=== PATIENT | male | born 1950 | race Caucasian/White ===

== ENCOUNTER 2017-12-07 11:49 | Inpatient (IN) | payer SELFPAY ==
[2017-12-07] MEDS ORDERED: Sodium Chloride FLUSH* 10 ML SYRINGE ONE (12:00)
[2017-12-07] MEDS ORDERED: EPINEPHRINE 1 MG/ML 1 ML VIAL ONE (12:00)
[2017-12-07 12:38] LABS: Hemoglobin 5.4 g/dl (14.0-18.0)
--- NOTE | 2017-12-07 12:49 | RAD ---
INDICATION: Cardiac arrest. COMPARISON: There are no prior studies available for comparison. TECHNIQUE: A portable view of the chest was obtained. FINDINGS: Cardiac and mediastinal contours appear to be within normal limits. The patient is status post intubation and nasogastric tube placement. The endotracheal tube tip projects to the right of the midline which is likely related to patient positioning and scoliosis. There is a nasogastric tube which enters normal course. The catheter tip projects below the left hemidiaphragm off the film. The lungs are underinflated and grossly clear. No pleural effusion or pneumothorax is seen. There is a slightly displaced fracture of the left lateral seventh rib. IMPRESSION: 1. STATUS POST INTUBATION AND NASOGASTRIC TUBE PLACEMENT. 2. LUNGS GROSSLY CLEAR. 3. SLIGHTLY DISPLACED FRACTURE OF THE LEFT LATERAL SEVENTH RIB.
[2017-12-07] MEDS ORDERED: NS 0.9% 1000 ML* 3,000 ML IV ONE (12:50)
[2017-12-07] MEDS ORDERED: Chlorhexidine MOUTHWASH 0.12%* 15 ML UDC TOPICAL SCH (13:00)
[2017-12-07 13:25] LABS: Monocytes % 8 % (0-7)
--- NOTE | 2017-12-07 13:29 | RAD ---
Indication: Cardiac arrest, unresponsive. CT of the brain was performed without IV contrast. Ventricular structures are midline. No midline shift is noted. Central and cortical atrophy is noted. Linear high density is noted in the left frontal lobe extending into the interhemispheric fissure. There is suggestion of a subarachnoid hemorrhage as well. No intraventricular hemorrhage is noted currently. No midline shift is noted. IMPRESSION: No midline shift is noted although high density material is noted in the left frontal tip extending into the interhemispheric fissure likely representing subarachnoid hemorrhage with possible cortical hemorrhage.
[2017-12-07 13:30] LABS: Urine Appearance Cloudy; Urine Blood 1+ (Negative); Urine Color Amber; Urine Ketones Negative (Negative); Urine Protein 2+(100 mg/dL) (Negative); Urine Specific Gravity 1.019 (1.010-1.030); Urine Urobilinogen Negative (Negative)
[2017-12-07] MEDS ORDERED: NS 0.9% 500 ML* 492 ML with Norepinephrine VIAL* 8 MG IV SCH ×2 (14:00)
[2017-12-07] MEDS ORDERED: D5W IVPB SCH (14:00)
[2017-12-07] MEDS ORDERED: Pantoprazole IV* 40 MG IV SCH (14:00)
[2017-12-07] MEDS ORDERED: NS 0.9% IVPB SCH (14:00)
[2017-12-07] MEDS ORDERED: EPINEPHRINE AMP IVPB SCH ×2 (14:00)
[2017-12-07 14:08] VITALS: BP 112/69
[2017-12-07 14:09] LABS: Hematocrit 18 % (42-52); Mean Corpuscular HGB Conc 29 g/dl (31-36); Mean Corpuscular Hemoglobin 29 pg (27-31); Mean Corpuscular Volume 98 fL (80-94); Mean Platelet Volume 10 um3 (7.4-10.4); Platelet Count 29 10^3/ul (150-450); Red Blood Count 1.87 10^6/ul (4.0-5.4); Red Cell Distribution Width 20 % (10.5-15); White Blood Count 5.5 10^3/ul (3.5-10.8)
--- NOTE | 2017-12-07 15:35 | HP ---
H&P (Free Text) History and Physical: CRITICAL CARE MEDICINE DATE: 12/07/17 TIME: 1145 PRIMARY CARE PROVIDER: none REFERRING PROVIDER: Dejuan REASON/CHIEF COMPLAINT: ohca HISTORY OF PRESENT ILLNESS: 67 M with limited history due to acuity; EMS summoned to being found down in his apartment by neighbor friend unresponsive. Initial rhytm per ems was pea to asystole. Given epi in field with autopulse. Failed ett and combitube placed. Downtime of 65min by ED arrival. PEA on arrival. Another 20min of tx and rosc. According to friend Chandu ?(?probably closest friend who called 911 today) pt with a estranged teenage daughter in [place]. May have a sister in [place]. But no family involvement. Pt would never have wanted to be kept alive on life support. He didn't go to doctors. REVIEW OF SYSTEMS: As per HPI, limited secondary to acuity. PAST MEDICAL HISTORY: As per HPI, limited secondary to acuity. bone fx, renal stones per records. MEDICATIONS: Unknown. ALLERGIES: Unknown. SOCIAL HISTORY: Reviewed. lived alone. [place] by trade. FAMILY HISTORY: none known. PHYSICAL EXAM: Post rosc in ED Vital Signs: Reviewed. Hr 60-90s. given atropine then with response. Neurologic: pupils were already fixed and dilated, dysconjugate. pale conjunctiva. No corneals. No ga, no cough. No response to pain. HEENT: ett with cuff leak, requiring advancement of ett to 27cm Cardiovascular: distant, but irr reg tone without appreciable m Respiratory: coarse bl but eq bs Abdomen: distended, tympanitic; no bs. old rlq scar (?appy) Extremities: cool. petchial appearing rash to b/l le. Access: piv; left tib io LABS: Reviewed. question validity of labs intracode IMAGING: Reviewed. CT with sah MEDICATIONS: Reviewed. ASSESSMENT: 67 male with multisystem organ failure post Out of hospital cardiac arrest. Cardiogenic shock. Coma on admission. Subarachnoid hemorrhage. Acute hypoxic respiratory failure. Lactic acidosis. Acute renal failure. Anemia. PLAN: At bedside post rosc. levophed, epinephrine required. bicarb given. bp maintaining into 90s systolic but not above despite efforts. coma with signs of anoxia. obtained CT with sah. could this have been the initial event with syncope and then prolonged downtime? vs post resuscitation efforts as doesn't seem large enough for coma, although SAH can be tricky that way. Vent with pcv 25/8, 100%. Labs were pending and hb returned in 5 gram range. question labs and held on given blood at this time given his condition, downtime and trying to find family. On arrival to ICU post ct, he had pulseless bradycardia ensue again and given further cpr, epi, bicarb with rosc. Already with signs of coma, msof, anoxia injury and refractory cardiogenic shock. Had received about 5 liters fluid at this point and volume collier was tolerating, but unable to maintain. plan for blood which would take a little time and of little overall benefit but could try. Then got a hold of pts friend Chandu, who had called 911 and is pt closest friend perhaps. We discussed as above. He explained several times lack of family involvement and that pt would not want such measures. When I explained we were already beyond most max therapies and was anticipating yet another cardiac arrest and we agree that pt would prefer to be let go if that ensued. Again, reminded him we were maxed and unable to support this failing process. Held off on blood products. Pt with ensuing bradycardia and arrest despite very high dose vasopressors and support. Demise was eminent and time of at 2:03pm. Disposition: . Code Status: Full Critical Care Time: 135min Salima Cruz DO
--- NOTE | 2017-12-07 16:47 | DS ---
CRITICAL CARE MEDICINE DISCHARGE SUMMARY ADMISSION DATE: 12/07/2017 DISCHARGE DATE: 12/07/2017 PRIMARY CARE PROVIDER: None. REFERRING PHYSICIAN: Dejuan. DIAGNOSIS: 1. Multisystem organ failure. 2. Out of hospital cardiac arrest. 3. Cardiogenic shock. 4. Coma on admission. 5. Subarachnoid hemorrhage. 6. Acute hypoxic respiratory failure. 7. Lactic acidosis. 8. Acute renal failure. 9. Anemia. 10. Thrombocytopenia. HOSPITAL COURSE: 67 year old male, with limited history due to acuity; EMS summoned to being found down in his apartment by neighbor friend and unresponsive. Initial rhythm per was pulseless electric activity. Advanced cardiac life suppport measures instilled. Over 90 minutes of code time until return of circulation. Requiring high dose vasopressors to maintain. Hemoglobin low at 5.4, perhaps explaining his onset with other signs of chronic marrow suppression. Cat scan brain with subarachnoid hemorrhage. Patient comatose, fixed and dilated pupils. On arrival to ICU another circulatory arrest and resuscitation. Closest friend expressed patient would not desire these efforts and despite maximum support patient contiuned to decline and was pronounced at 2:03pm. Ear Nose Throat Physician notified and abstained. DISPOSITION: . Salima Cruz DO
--- NOTE | 2017-12-12 19:34 | ED ---
Ny Jimenez Julia, scribed for Kyle Zaidi MD on 12/07/17 at 1224 . Cardiac Resuscitation - HPI Summary HPI Summary: This patient is a 67 year old M BIBA to [facility] for an unwitnessed cardiac event. EMS reports patient was down for an unknown amount of time after an unwitnessed cardiac event. EMS states patient was found at scene warm to touch and in asystole. CPR was administrated by rescue team, with no shock advised by AED. One round of epinephrine and sodium bicarbonate was administered and pulses returned, pacing quickly, and EMS were able to attain an EKG. Patient returned to asystole in the ambulance. Patients cardiac history is unknown. Patients friends at the scene state he has not seen a doctor in years. HPI is limited due to level 5 caveat. - History of Current Complaint Chief Complaint: EDCardiacArrest Stated Complaint: CARDIAC ARREST Hx Obtained From: EMS Hx From Patient Unobtainable Due To: Other - level 5 caveat Onset/Duration: Unknown Arrest Witnessed: No Down-time Before Basic Life Support Initiated: Unknown Was AED Placed on Patient: Yes - Allergies/Home Medications Home Medications: Home Medications Unobtainable [Unobtainable] 12/07/17 [History Confirmed 12/07/17] - Past Medical History Past Medical History: Unobtainable Due to Extremis - Family History Family History: Unobtainable Due to Extremis - Social History Social History: Unobtainable Due to Extremis - Review of Systems Review of Systems: Unobtainable Due to Extremis Physical Examination - Summary Physical Exam Summary: Appearance: remains unresponsive, no spontaneous movement upon resuscitation, CombiTube and PEA Skin: Warm, Dry, No rash, pale Eyes: pupils fixed and dilated ENT: CombiTube and PEA Neck: Supple, nontender Cardiovascular: asystole upon arrival Abdomen: Soft, nontender, no organomegaly Musculoskeletal:, no edema, pulses bilateral and symmetrical Neurological: unresponsive - Physical Examination Resuscitation: Successful Diagnostics - Vital Signs Vital Signs Temp Pulse Resp BP Pulse Ox 12/07/17 12:00 95.5 F 0 0 00/00 87 - Laboratory Lab Results: Lab Results 12/07/17 12/07/17 12/07/17 Range/Units 12:05 12:05 12:40 WBC 5.5 (3.5-10.8) 10^3/ul RBC 1.87 L (4.0-5.4) 10^6/ul Hgb 5.4 L* (14.0-18.0) g/dl Hct 18 L (42-52) % MCV 98 H (80-94) fL MCH 29 (27-31) pg MCHC 29 L (31-36) g/dl RDW 20 H (10.5-15) % Plt Count 29 L (150-450) 10^3/ul MPV 10 (7.4-10.4) um3 Neut % (Auto) Not Reportable Lymph % (Auto) Not Reportable [place] % (Auto) Not Reportable Eos % (Auto) Not Reportable Baso % (Auto) Not Reportable Absolute Neuts (auto) Not Reportable Absolute Lymphs (auto) Not Reportable Absolute Monos (auto) Not Reportable Absolute Eos (auto) Not Reportable Absolute Basos (auto) Not Reportable Absolute Nucleated RBC Not Reportable Immature Gran % 7 (0-9) % Neutrophils % 25 L (38-83) % Band Neutrophils % 5 (0-8) % Lymphocytes % 60 H (25-47) % Monocytes % 8 H (0-7) % Eosinophils % 0 (0-6) % Basophils % 0 (0-2) % Metamyelocytes % 2 (0-2) % Nucleated RBC % Not Reportable Abs Neuts (Manual) 1.4 L (1.5-7.7) 10^3/ul Abs Monocytes (Manual) 0.4 (0-0.8) 10^3/ul Absolute Eos (Manual) 0 (0-0.6) 10^3/ul Abs Basophils (Manual) 0 (0-0.2) 10^3/ul Nucleated RBCs/100 WBC 0 (0-0) Normal RBC Morphology Not Reportable Hypochromasia 2+ Anisocytosis 2+ Elliptocytes 2+ Hem Pathologist Commnt Sodium 156 H* (133-145) mmol/L Potassium 6.0 H (3.5-5.0) mmol/L Chloride 104 (101-111) mmol/L Carbon Dioxide 21 L (22-32) mmol/L Anion Gap 31 H (2-11) mmol/L BUN 81 H (6-24) mg/dL Creatinine 2.19 H (0.67-1.17) mg/dL Est GFR ( Amer) 38.6 (>60) Est GFR (Non-Af Amer) 30.0 (>60) BUN/Creatinine Ratio 37.0 H (8-20) Glucose 43 L (70-100) mg/dL Calcium 6.0 L* (8.6-10.3) mg/dL Phosphorus 17.6 H (2.5-5.0) mg/dL Total Bilirubin 1.70 H (0.2-1.0) mg/dL AST 3334 H (13-39) U/L ALT 1509 H (7-52) U/L Alkaline Phosphatase 48 (34-104) U/L Troponin I 0.06 H* (<0.04) ng/mL Total Protein < 3.0 L (6.4-8.9) g/dL Albumin < 1.5 L (3.2-5.2) g/dL Globulin Not Reportable Albumin/Globulin Ratio Not Reportable Urine Color Urine Appearance Urine pH (5-9) Ur Specific [place] (1.010-1.030) Urine Protein (Negative) Urine Ketones (Negative) Urine Blood (Negative) Urine Nitrate (Negative) Urine Bilirubin (Negative) Urine Urobilinogen (Negative) Ur Leukocyte Esterase (Negative) Urine WBC (Auto) (Absent) Urine RBC (Auto) (Absent) Urine Bacteria (Absent) Urine Glucose (Negative) Urine Opiates Screen (None Detect) Ur Barbiturates Screen (None Detect) Ur Phencyclidine Scrn (None Detect) Ur Amphetamines Screen (None Detect) U Benzodiazepines Scrn (None Detect) Urine Cocaine Screen (None Detect) U Cannabinoids Screen (None Detect) Blood Type O Positive Antibody Screen Negative 12/07/17 12/07/17 Range/Units 12:45 12:45 WBC (3.5-10.8) 10^3/ul RBC (4.0-5.4) 10^6/ul Hgb (14.0-18.0) g/dl Hct (42-52) % MCV (80-94) fL MCH (27-31) pg MCHC (31-36) g/dl RDW (10.5-15) % Plt Count (150-450) 10^3/ul MPV (7.4-10.4) um3 Neut % (Auto) Lymph % (Auto) [place] % (Auto) Eos % (Auto) Baso % (Auto) Absolute Neuts (auto) Absolute Lymphs (auto) Absolute Monos (auto) Absolute Eos (auto) Absolute Basos (auto) Absolute Nucleated RBC Immature Gran % (0-9) % Neutrophils % (38-83) % Band Neutrophils % (0-8) % Lymphocytes % (25-47) % Monocytes % (0-7) % Eosinophils % (0-6) % Basophils % (0-2) % Metamyelocytes % (0-2) % Nucleated RBC % Abs Neuts (Manual) (1.5-7.7) 10^3/ul Abs Monocytes (Manual) (0-0.8) 10^3/ul Absolute Eos (Manual) (0-0.6) 10^3/ul Abs Basophils (Manual) (0-0.2) 10^3/ul Nucleated RBCs/100 WBC (0-0) Normal RBC Morphology Hypochromasia Anisocytosis Elliptocytes Hem Pathologist Commnt Sodium (133-145) mmol/L Potassium (3.5-5.0) mmol/L Chloride (101-111) mmol/L Carbon Dioxide (22-32) mmol/L Anion Gap (2-11) mmol/L BUN (6-24) mg/dL Creatinine (0.67-1.17) mg/dL Est GFR ( Amer) (>60) Est GFR (Non-Af Amer) (>60) BUN/Creatinine Ratio (8-20) Glucose (70-100) mg/dL Calcium (8.6-10.3) mg/dL Phosphorus (2.5-5.0) mg/dL Total Bilirubin (0.2-1.0) mg/dL AST (13-39) U/L ALT (7-52) U/L Alkaline Phosphatase (34-104) U/L Troponin I (<0.04) ng/mL Total Protein (6.4-8.9) g/dL Albumin (3.2-5.2) g/dL Globulin Albumin/Globulin Ratio Urine Color Kelsea Urine Appearance Cloudy Urine pH 5.0 (5-9) Ur Specific [place] 1.019 (1.010-1.030) Urine Protein 2+(100 mg/dl) A (Negative) Urine Ketones Negative (Negative) Urine Blood 1+ A (Negative) Urine Nitrate Negative (Negative) Urine Bilirubin Negative (Negative) Urine Urobilinogen Negative (Negative) Ur Leukocyte Esterase Negative (Negative) Urine WBC (Auto) 3+(>20/hpf) A (Absent) Urine RBC (Auto) 3+(>10/hpf) A (Absent) Urine Bacteria Absent (Absent) Urine Glucose Negative (Negative) Urine Opiates Screen None detected (None Detect) Ur Barbiturates Screen None detected (None Detect) Ur Phencyclidine Scrn None detected (None Detect) Ur Amphetamines Screen None detected (None Detect) U Benzodiazepines Scrn None detected (None Detect) Urine Cocaine Screen None detected (None Detect) U Cannabinoids Screen None detected (None Detect) Blood Type Antibody Screen Result Diagrams: 12/07/17 12:05 12/07/17 12:05 Lab Statement: Any lab studies that have been ordered have been reviewed, and results considered in the medical decision making process. - Radiology CXR Radiology Interpretation Completed By: Radiologist - CT Brain CT CT Interpretation Completed By: Radiologist - No midline shift is noted although high density material is noted in the left frontal tip extending into the interhemispheric fissure likely representing subarachnoid hemorrhage with possible cortical hemorrhage. ED Physician has reviewed this report. - EKG EMS Cardiac Rate: Tachycardia - 110 BPM EKG Rhythm: Atrial Fibrillation EKG Interpretation: deep ST depression in V2-V4 ;08 Cardiac Rate: NL - at 87 BPM EKG Rhythm: Sinus Rhythm - sinus arrythmia EKG Interpretation: ST depression V4, V5, IVCD Cardiac Resus. Course/Dx - Course Course Of Treatment: Patient arrives via EMS unresponsive. EMS reports patient was down for an unknown amount of time after an unwitnessed cardiac event. EMS states patient was found at scene warm to touch and in asystole. CPR was administrated by rescue team, with no shock advised by AED. One round of epinephrine and sodium bicarbonate was administered and pulses returned, pacing quickly, and EMS were able to attain an EKG. Patient returned to asystole in the ambulance. Patients cardiac history is unknown. CPR began at 11:50. Patient was intubated by JIA Alford, with 7.5cm tube at 11:51. First round of Epinephrine was administered at 11:53. Pulses detected at 11:55. Second epinephrine was at 11:56. At 12:01 no pulses detected. Third epinephrine at 12:03. Pulse detected at 12:05 with sinus rhythm and blood pressure of 124/ 70. A mg of atropine was administered at 12:07. Patient's CXR reveals a fracture to the seventh rib. Brain CT reveals subarachnoid hemorraghe with midline shift. Dr. Cruz was present upon patient arrival and agrees to admit this patient. - Diagnoses Provider Diagnoses: Cardiac arrest, subarchnoid hemorrhage bilaterally During the Visit The Following Alert/Code Occurred: ABC Alert - at 11:32, ETA 10 minutes - Provider Notifications Discussed Care Of Patient With: Peewee Cruz Instructed by Provider To: Admit As Inpatient - Critical Care Time Critical Care Time: 30-74 min Discharge - Discharge Plan Condition: Critical Disposition: ADMITTED TO [facility] Discharge Disposition Comment: admitted to ICU The documentation as recorded by the Ny anglin Julia accurately reflects the service I personally performed and the decisions made by me, Kyle Zaidi MD.
== END 2017-12-07 14:03 | disposition expired | DRG 296 ==
LOC: ED 11:49 → ICU 12:46
PROVIDERS: ADMIT Internal Medicine Critical Care Medicine; ATTEND Internal Medicine Critical Care Medicine
PROC: 3E043XZ Introduction of Vasopressor into Central Vein, Percutaneous Approach (ICD-10-PCS; principal; 2017-12-07)
PROC: 5A1935Z Respiratory Ventilation, Less than 24 Consecutive Hours (ICD-10-PCS; 2017-12-07)
PROC: 5A12012 Performance of Cardiac Output, Single, Manual (ICD-10-PCS; 2017-12-07)
DX: I46.9 Cardiac arrest, cause unspecified (principal); I60.9 Nontraumatic subarachnoid hemorrhage, unspecified; J96.01 Acute respiratory failure with hypoxia; R40.20 Unspecified coma; R57.0 Cardiogenic shock; E87.2 Acidosis; D69.6 Thrombocytopenia, unspecified; N17.9 Acute kidney failure, unspecified; S22.39XA Fracture of one rib, unspecified side, initial encounter for closed fracture; G93.1 Anoxic brain damage, not elsewhere classified; D64.9 Anemia, unspecified; Z87.442 Personal history of urinary calculi
CPT/HCPCS: 36415; 70450; 71045; 80053; 80307; 81003; 81015; 82803; 83605; 84100; 84484; 85025; 85060; 86850; 86900; 86901; 87086; 92950; 93005; 94002; 99285; A9270-GY; J0171